=== PATIENT | female | born 1990 | race Caucasian/White ===

== ENCOUNTER 2019-01-01 15:17 | Emergency (ER) | payer OTHER ==
[~2019-01-01] VITALS: Ht 167.6 cm; Wt 65.9 kg
[~2019-01-01 15:17] MED LIST: birth control PO
[2019-01-01] MEDS ORDERED: ONDANSETRON 2MG/ML, 2ML IVPush ONE (15:30)
[2019-01-01] MEDS ORDERED: SODIUM CHLORIDE FLUSH 10ML SYR IVF ONE (15:30)
[2019-01-01] MEDS ORDERED: ONDANSETRON 2MG/ML, 2ML ONE (15:38)
[2019-01-01] MEDS ORDERED: FAMOTIDINE 20 MG/2 ML ONE (15:39)
[2019-01-01 15:57] LABS: BASOPHILS # (AUTO) 0.02 x10^3/uL (0-0.1); BASOPHILS % (AUTO) 0 % (0-1); EOSINOPHILS # (AUTO) 0.13 x10^3/uL (0-0.4); EOSINOPHILS % (AUTO) 1 % (1-7); LYMPHOCYTES # (AUTO) 1.29 x10^3/uL (1-3.4); LYMPHOCYTES % (AUTO) 11 % (22-44); MD NO; MEAN CORPUSCULAR HEMOGLOBIN 32.1 pg (27.0-34.8); MEAN CORPUSCULAR HGB CONC 35.2 g/dL (32.4-35.8); MEAN CORPUSCULAR VOLUME 91.2 fL (80-100); MEAN PLATELET VOLUME 7.5 fL (7.4-10.4); MONOCYTES # (AUTO) 0.56 x10^3/uL (0.2-0.8); MONOCYTES % (AUTO) 5 % (2-9); NEUTROPHILS # (AUTO) 10.13 x10^3/uL (1.8-6.8); NEUTROPHILS % (AUTO) 84 % (42-75); PLATELET COUNT 257 x10^3/uL (130-400); RED BLOOD COUNT 4.73 x10^6/uL (3.82-5.3); RED CELL DISTRIBUTION WIDTH 12.2 % (9.6-15.2)
[2019-01-01] MEDS ORDERED: PLEASE ENTER HEIGHT AND WEIGHT MC SCH (16:00)
[2019-01-01] MEDS ORDERED: SODIUM CHLORIDE 0.9% 1,000ML IVBOLUS ONE (16:00)
[2019-01-01] MEDS ORDERED: FAMOTIDINE 20 MG/2 ML IVPush ONE (16:00)
[2019-01-01 16:05] LABS: ALANINE AMINOTRANSFERASE 23 U/L (12-78); ALBUMIN 4.2 g/dL (3.4-5.0); ANION GAP 11 mmol/L (5-15); CALCIUM 8.8 mg/dL (8.5-10.1); CHLORIDE 109 mmol/L (98-107); CREATININE 0.67 mg/dL (0.55-1.02)
[2019-01-01 16:10] LABS: ALKALINE PHOSPHATASE 45 U/L (45-117); BILIRUBIN,TOTAL 1.8 mg/dL (0.2-1.0); TOTAL PROTEIN 6.9 g/dL (6.4-8.2)
[2019-01-01 16:23] LABS: RAPID INFLUENZA A Negative (Negative); RAPID INFLUENZA B Negative (Negative)
--- NOTE | 2019-01-01 16:44 | NUR ---
Pt resting on gurney connected to all monitors and PIV fluids infusing per EMAR. NADN. PT aware of need of UA. Call light within reach.
--- NOTE | 2019-01-01 17:37 | NUR ---
Pt provided meds per EMAR and PIV fluids per [facility]AR. Pt had two episodes of emesis s/p meds. ED MD aware. Providing additonal meds per EMAR and ED MD order. Pt states, "I am feeling less lethargic and a little better." NADN. No other needs requested at this time.
[2019-01-01] MEDS ORDERED: PROCHLORPERAZINE 5 MG/ML, 2ML ONE (17:39)
[2019-01-01] MEDS ORDERED: PROCHLORPERAZINE 5 MG/ML, 2ML IVPush ONE ×2 (18:00→18:30)
--- NOTE | 2019-01-01 18:43 | NUR ---
Provided pt 30 mL of water for PO challenge. NADN. No emesis for pt since last medication admin. Pt asleep on gurney connected to all monitors. Family at bedside. No needs expressed at this time.
--- NOTE | 2019-01-01 19:21 | NUR ---
Patient given discharge instructions and they have confirmed that they understand the instructions. Patient ambulatory with steady gait. Pt left with prescription, discharge paperwork, and all personal belongings.
[2019-01-01 19:22] VITALS: BP 103/63
== END 2019-01-01 19:24 | disposition home or self-care (01) ==
LOC: ED 16:25
DX: A08.4 Viral intestinal infection, unspecified (principal); Z90.89 Acquired absence of other organs
CPT/HCPCS: 36415; 80053; 83690; 84703; 85025; 87400; 96361; 96374; 96375; 99283; J0780; J2405; J3490; J7030

== ENCOUNTER 2020-04-09 09:00 | Emergency (ER) | payer OTHER ==
[~2020-04-09] VITALS: Ht 165.1 cm; Wt 79.9 kg
[2020-04-09] MEDS ORDERED: ONDANSETRON 2MG/ML, 2ML ONE (10:21)
[2020-04-09] MEDS ORDERED: FAMOTIDINE 20 MG/2 ML ONE (10:21)
[2020-04-09] MEDS ORDERED: MAALOX/HYOSCYAMINE/LIDOCAINE 45 ML BTL ONE (10:21)
[2020-04-09] MEDS ORDERED: ONDANSETRON 2MG/ML, 2ML IVPush ONE (10:30)
[2020-04-09] MEDS ORDERED: SODIUM CHLORIDE 0.9% 1,000ML IVBOLUS ONE (10:30)
[2020-04-09] MEDS ORDERED: SODIUM CHLORIDE FLUSH 10ML SYR IVF ONE (10:30)
[2020-04-09] MEDS ORDERED: MAALOX/HYOSCYAMINE/LIDOCAINE 45 ML BTL PO ONE (10:30)
[2020-04-09] MEDS ORDERED: FAMOTIDINE 20 MG/2 ML IV ONE (10:30)
[2020-04-09 11:10] LABS: BASOPHILS # (AUTO) 0.02 x10^3/uL (0-0.1); BASOPHILS % (AUTO) 0 % (0-1); EOSINOPHILS % (AUTO) 0 % (1-7); LYMPHOCYTES # (AUTO) 0.69 x10^3/uL (1-3.4); LYMPHOCYTES % (AUTO) 7 % (22-44); MD NO; MEAN CORPUSCULAR VOLUME 94.1 fL (80-100); MEAN PLATELET VOLUME 7.6 fL (7.4-10.4); MONOCYTES # (AUTO) 0.26 x10^3/uL (0.2-0.8); MONOCYTES % (AUTO) 3 % (2-9); NEUTROPHILS # (AUTO) 9.23 x10^3/uL (1.8-6.8); NEUTROPHILS % (AUTO) 91 % (42-75); PLATELET COUNT 251 x10^3/uL (130-400); RED BLOOD COUNT 4.33 x10^6/uL (3.82-5.3); RED CELL DISTRIBUTION WIDTH 12.8 % (9.6-15.2)
[2020-04-09 11:20] LABS: CHLORIDE 110 mmol/L (98-107)
[2020-04-09 11:30] LABS: ALANINE AMINOTRANSFERASE 20 U/L (12-78); ALBUMIN 3.9 g/dL (3.4-5.0); ALKALINE PHOSPHATASE 43 U/L (45-117); ANION GAP 7 mmol/L (5-15); BILIRUBIN,TOTAL 1.6 mg/dL (0.2-1.0); CALCIUM 8.7 mg/dL (8.5-10.1); CREATININE 0.68 mg/dL (0.55-1.02)
[2020-04-09 12:10] VITALS: BP 125/77
== END 2020-04-09 12:17 | disposition home or self-care (01) ==
LOC: ED 09:21
DX: Z03.818 Encounter for observation for suspected exposure to other biological agents ruled out (principal); R11.2 Nausea with vomiting, unspecified; R19.7 Diarrhea, unspecified; R10.9 Unspecified abdominal pain; M79.10 Myalgia, unspecified site
CPT/HCPCS: 36415; 80053; 84703; 85025; 87635; 96361; 96374; 96375; 99284; J2405; J3490; J7030